=== PATIENT | male | born 1950 | race Caucasian/White ===

== ENCOUNTER 2020-11-05 07:50 | Outpatient (RCR) | payer MEDICARE, OTHER, SELFPAY ==
[2020-11-05] MEDS: COVID-19 VACC, MRNA(PFIZER)/PF 30 MCG/0.3 ML SYRINGE IM (08:06)
[2020-11-26] MEDS: COVID-19 VACC, MRNA(PFIZER)/PF 30 MCG/0.3 ML SYRINGE IM (07:52)
== END 2020-11-05 23:59 ==
LOC: IMMUN 07:50
PROVIDERS: Visit Provider Family Medicine
DX: Z23 Encounter for immunization (principal)
CPT/HCPCS: 0001A; 0002A

== ENCOUNTER → 2021-03-10 15:00 | Outpatient (CLI) | payer MEDICARE, SELFPAY ==
[2021-03-10 18:17] LABS: CRP < 2.90 mg/L (0.0-3.0)
[2021-03-12 20:08] LABS: Endomysial Antibody IgA Negative (Negative)
[2021-03-12 20:34] LABS: Immunoglobulin A 109 mg/dL (61-437); t-Transglutaminase IgA <2 U/mL (0-3)
== END ==
PROVIDERS: Referring Provider Internal Medicine Gastroenterology; Visit Provider Internal Medicine Gastroenterology
DX: R19.7 Diarrhea, unspecified (principal)
CPT/HCPCS: 36415; 82784; 83516; 86140; 86255

== ENCOUNTER → 2021-04-26 16:01 | Outpatient (CLI) | payer MEDICARE, SELFPAY ==
--- NOTE | 2021-04-25 | COLBX_PTH ---
PATIENT: HERBERT ARMANDO LOC: [facility] U#:[id number] AGE/SX: 75/M ROOM: RE04/26/[address]: Dr. Darren Almeida MD : 1950 BED: DIS: SPEC #: [id number] RECD: 04/26/21 15:04 STATUS: JOSE CASTILLO #: [id number] BARBARA: 04/25/21 00:[address]: Darren Almeida DEPT: SURGICAL PATHOLOGY RECD BY: Estefany Blackmon ENTERED: 04/27/21 07:49 SP TYPE: COLON BX OT DR: Dr. Herminia Robin, [facility] Tissues: A - COLON BIOPSY B - Ileum, NOS Procedures: Trichrome (control) Special Stain Group II Surgery Specimen Level IV HEADER OPERATION: Colonoscopy PRE-OP DIAGNOSIS: Abdominal bloating, weight loss, abdomen pain, diarrhea TISSUE SUBMITTED: A - Right and left colon biopsy, rule out microscopic colitis, B - Terminal ileum, rule out Crohn?s MICROSCOPIC DIAGNOSIS A. Right and left colon, biopsy: Fragments of colonic mucosa, no pathologic diagnosis. See comment. B. Terminal ileum, biopsy: A fragment of small intestinal mucosa, no pathologic diagnosis. KEILA:nicolle 04/28/2021 COMMENT A. Trichrome stain with matched control is used in the evaluation of the specimen and did not show significant thickening of subepithelial collagen band. Correlation with clinical, endoscopic findings and appropriate follow up are necessary.. MICROSCOPIC DESCRIPTION Slides are reviewed. GROSS DESCRIPTION A - Received in fixative is one container labeled with the patient's name and designated right and left colon biopsy. The specimen consists of multiple irregular fragments of light oliva soft tissue that in aggregate measure 1.5 x 1 x 0.1 cm. The specimen is totally submitted in one cassette. B - Received in fixative is one container labeled with the patient's name and designated terminal ileum biopsy. The specimen consists of one irregular fragment of light oliva soft tissue that measures 0.3 x 0.3 x 0.1 cm. The specimen is totally submitted in one cassette. / SJ:nicolle 04/27/21 TC:4 CPT: 84311 x2, 70225
== END ==
PROVIDERS: Visit Provider Internal Medicine Gastroenterology
DX: R14.0 Abdominal distension (gaseous) (principal); R19.7 Diarrhea, unspecified; R63.4 Abnormal weight loss
CPT/HCPCS: 88305; 88313